=== PATIENT | male | born 1990 | race African-American/Black ===

== ENCOUNTER 2020-10-23 22:38 | Emergency (ER) | payer MEDICAID ==
[~2020-10-23] VITALS: Ht 185.4 cm; Wt 78.0 kg
[2020-10-23] MEDS ORDERED: HYDROCODONE/ACETAMINOPHEN 5/325MG TABLET PO ONE (23:00)
[2020-10-23 23:21] LABS: CLARITY URINE CLEAR (CLEAR); COLOR URINE YELLOW (YELLOW); KETONES URINE TRACE (NEGATIVE); LEUKOCYTE ESTERASE URINE TRACE (NEGATIVE); NITRITE URINE NEGATIVE (NEGATIVE); OCCULT BLOOD URINE NEGATIVE (NEGATIVE); PROTEIN URINE TRACE (NEGATIVE); SPECIFIC GRAVITY URINE 1.028 (1.005-1.030)
[2020-10-24] MEDS ORDERED: CEFTRIAXONE SODIUM 500 MG/VIAL IM ONE (00:30)
[2020-10-24] MEDS ORDERED: DOXY100C2 MT (00:51)
[2020-10-24] MEDS ORDERED: IBUP-2029 MT (00:51)
[2020-10-24 01:01] VITALS: BP 130/72
== END 2020-10-24 01:04 | disposition home or self-care (01) ==
LOC: ER 22:38
DX: N45.1 Epididymitis (principal); Z79.899 Other long term (current) drug therapy
CPT/HCPCS: 76870; 81003; 93976; 96372; 99284; J0696